=== PATIENT | male | born 1950 | race Caucasian/White ===

== ENCOUNTER 2019-01-01 17:26 | Inpatient (IN) | payer OTHER ==
[~2019-01-01] VITALS: Ht 175.2 cm; Wt 109.8 kg
--- NOTE | ~2019-01-01 | PR ---
[place], [place] PROGRESS NOTE NAME: CANDI MORATAYA UNIT #: [id number] ROOM: 316 DOCTOR: KATHERIN WILKINSON MD BIRTHDATE: [birth year] DOS: 01/03/2019 CHIEF COMPLAINT: "I'm feeling better. I just hope I get to go home soon. I miss my and I miss my dog." SUMMARY OF THE VISIT: The patient was interviewed as he was finishing his breakfast. He had most of it eaten. He stopped though and engaged readily in conversation, reporting that his sleep and appetite have both improved and that he is beginning to feel better. He did request that he followup in my office and wants to be able to see a counselor for his anger and grief issues. He convincingly denies medication side effects. MENTAL STATUS: He is alert and oriented. Mood does seem to be starting to trend towards euthymia. Affect is much more appropriate. There is no rakesh or hypomania. There is no gross psychosis. Short term memory, intermediate memory and long-term memory are intact. PLAN: I will consult Dr. Maral Dumont for counseling services. Continue his current psychotropic regimen, continue to engage in individual and najera milieu activity, returning to the least restrictive environment when psychiatrically stable. KATHERIN WILKINSON MD CM:PNTRANS [id number] KATHERIN WILKINSON MD 01/03/19 1520 interface
--- NOTE | ~2019-01-01 | EKG ---
[place], [place] ELECTROCARDIOGRAM REPORT NAME: CANDI MORATAYA UNIT #: [id number] ROOM: [facility] DOCTOR: NIRMALA DRAFT REPORT BIRTHDATE: [birth year] [facility] Test Date: 2019-01-01 Test Time: 21:02:02 Pat Name: CANDI MORATAYA Department: Room: Gender: Compensation/Benefits Specialist: : 1950 Requested By: EDEN KIM Order Number: [id number] Reading MD: Ariana Mustafa Measurements Intervals Point Rate: 81 P: 35 OH: 223 QRS: -23 QRSD: 115 T: 35 QT: 395 QTc: 459 Interpretive Statements Sinus rhythm Prolonged OH interval Incomplete right bundle branch block Electronically Signed On 01-03-2019 9:35:38 PST by Ariana Mustafa CM:EKGRPT:ELECTROCARDIOGRAM REPORT 01 0935 EDEN KIM EPIPHANY DRAFT REPORT EDEN KIM
--- NOTE | ~2019-01-01 | DS ---
[place], [place] DISCHARGE SUMMARY NAME: CANDI MORATAYA UNIT #: [id number] ROOM: 316 DOCTOR: KATHERIN WILKINSON MD BIRTHDATE: [birth year] DOS: 01/04/2019 CHIEF COMPLAINT: "I am just so stressed out, I can't go on like this." HISTORY OF PRESENT ILLNESS: This is a 68-year-old white male who was sent in to the Emergency Room at [facility] by his primary care physician, Dr. Joshi. The patient had presented to Dr. Joshi's office with a chief complaint of increased depression, increased anxiety, inability to cope with fleeting suicidal thoughts. The patient reports increased stressors that have been wearing him down to the point where he is not sleeping well, eating well. He has not been attending to his ADLs. He can no longer cope and states he has thoughts of ending his life or at least hoping he would go to bed and not wake up. The patient reports that he has not felt this bad in a long time and that this is new to him and he wants to get help. He was admitted now to rule out organic factors and to stabilize on medication. SUMMARY OF HOSPITAL COURSE: The patient was admitted to the unit where he was started on Remeron 15 mg at bedtime to combat depression, to aid sleep and improve appetite. Additionally, he was given a non-addictive antianxiety medicine Vistaril 25 mg 3 times daily to help relieve some of the anxiety and allow him to cope more appropriately. Routine screening examinations revealed a vitamin D level that was low at 22.2, so vitamin D 5000 International Units daily was added. Over the course of the next several days, the patient tolerated the medication well and reported improvement in sleep and appetite and ADL maintenance. Over this course, he was counseled on ways to more effectively cope with life stressors and felt that he had improved enough to be able to return home. I did talk with my staff in my office and we did arrange for him to be discharged then on , 01/04/2019 with an appointment already on 01/05/2019. MENTAL STATUS AT DISCHARGE: The patient is alert and oriented to person, place, and time. Mood is overwhelmingly depressed at the time of admission, but had improved sufficiently at the time of discharge. He was definitely trending towards euthymia and was much brighter and the neurovegetative symptoms had dissipated. There is no hypomania or rakesh. There is no gross psychosis. Short, intermediate, and long-term memory was intact. FINAL DIAGNOSES UPON DISCHARGE: Major depression, recurrent, severe. DISPOSITION: All of his prescriptions were e-scribed to [facility] in [place] At the time of discharge, he was medically and psychiatrically stable. [place], [place] DISCHARGE SUMMARY NAME: CANDI MORATAYA UNIT #: [id number] ROOM: [facility] DOCTOR: KATHERIN WILKINSON MD BIRTHDATE: [birth year] KATHERIN WILKINSON MD CM:DISCHARG [id number] KATHERIN WILKINSON MD 01/04/19 1040 interface
--- NOTE | ~2019-01-01 | WRIGHTHP ---
[place], [place] PATIENT HISTORY AND PHYSICAL EXAM NAME: CANDI MORATAYA UNIT #: [id number] ROOM: 316 DOCTOR: KATHERIN WILKINSON MD BIRTHDATE: [birth year] DOS: 01/02/2019 CHIEF COMPLAINT: "I am just so stressed out, I can't go on like this." HISTORY OF PRESENT ILLNESS: This is a 68-year-old white male who was sent to the Emergency Room of [facility] by his primary care physician, Dr. Joshi. The patient had presented to Dr. Joshi with a chief complaint of increased depression, increased anxiety, inability to cope with fleeting suicidal thoughts. The patient reports that he has been stressed out for a long time and that this has been gradually wearing him down to the point where he is not sleeping well, eating well. He is not attending to his ADLs. He no longer can cope and has had some thoughts of ending his life or at least hoping that he would go to bed and not wake up. The patient reports that he has not felt this bad for a long time and that this is very new to him and he is overwhelmed by life stressors. He is admitted now to rule out organic factors, to stabilize on medication, to engage in individual and najera milieu activity with the ultimate plan to return to the least restrictive environment when psychiatrically stable. PAST MEDICAL HISTORY: Remarkable for asthma, atrial fibrillation, congestive heart failure, hypertension, GERD, diabetes, obstructive sleep apnea. SOCIAL HISTORY: The patient is a former cigarette smoker, but does not smoke now. He does drink alcohol socially. He does not use illicit drugs. ALLERGIES: He lists no known allergies. STRENGTHS: Ambulatory, good verbal skills. WEAKNESSES: High stress level, poor coping skills. MENTAL STATUS: The patient is alert and oriented to person, place, and time. Mood is overwhelmingly depressed with anxious overtones. He endorses multiple neurovegetative symptoms as well as fleeting suicidal thoughts. There is no hypomania or rakesh. There are no gross psychotic symptoms. Short term, intermediate, and long-term memory are intact. DIAGNOSIS: Major depression, recurrent, severe. PLAN: I have already started him on Remeron 15 mg at bedtime. I will go ahead and add Vistaril 25 mg 3 times a day as a non-addicting antianxiety agent given his stress level. Routine screening examinations reveal him to have a low vitamin D level of 22.2. I will treat with vitamin D 5000 international units daily. We will engage in individual and najera milieu activity with the ultimate plan to return to the least restrictive environment when psychiatrically stable. [place], [place] PATIENT HISTORY AND PHYSICAL EXAM NAME: CANDI MORATAYA UNIT #: [id number] ROOM: [facility] DOCTOR: KATHERIN WILKINSON MD BIRTHDATE: [birth year] KATHERIN WILKINSON MD CM:HISPHYS:PATIENT HISTORY AND PHYSICAL EXAMINATION [id number] KATHERIN WILKINSON MD 01/02/19 1053 interface
[2019-01-01 17:29] VITALS: BP 130/93
--- NOTE | 2019-01-01 20:24 | NUR ---
PT REMAINS W/O ACUTE DISTRESS NOTED AWAITING EVAL,SAFETY PRECAUTIONS INTACT AND CALL LIGHT WITHIN REACH.
--- NOTE | 2019-01-01 21:02 | NUR ---
PT AWARE THAT REQUIRE A URINE SAMPLE FOR ANALYSIS.
[2019-01-01 21:14] LABS: BASO % 0.4 % (0.0-1.0); EOS # 0.2 10*3/uL (0.0-0.4); EOS % 2.2 % (1.0-4.0); HEMOGLOBIN 14.3 g/dl (14.0-18.0); LYMPH % 29.2 % (27.0-41.0); MEAN CELL VOLUME 98.4 fl (80.0-94.0); MEAN CORPUSCULAR HGB CONC 32.5 g/dl (33.0-37.0); MEAN PLATELET VOLUME 9.1 fl (9.6-12.3); MONO % 9.5 % (3.0-9.0); NEUT % 58.2 % (47.0-73.0); PLATELET COUNT AUTOMATED 305 10*3/uL (130-400); RED BLOOD COUNT 4.47 10*6/uL (4.50-5.90); RED CELL DISTRI WIDTH 12.7 % (0-14.5); WHITE BLOOD COUNT 10.4 10*3/uL (4.8-10.8)
[2019-01-01 21:23] LABS: BILIRUBIN NEGATIVE (NEGATIVE); BLOOD NEGATIVE (NEGATIVE); CLARITY CLEAR (CLEAR); COLOR YELLOW (YELLOW); GLUCOSE NEGATIVE (NEGATIVE); KETONE NEGATIVE (NEGATIVE); LEUKO ESTERASE NEGATIVE (NEGATIVE); NITRITE NEGATIVE (NEGATIVE); PH 5.5 (5.0-9.0); SPECIFIC GRAVITY 1.025 (1.005-1.030); UROBILINOGEN 0.2 E.U./dl (0.2-1.0)
[2019-01-01 21:30] LABS: ALBUMIN 3.7 gm/dl (3.1-4.5); ALKALINE PHOSPHATASE 61 U/L (45-117); BUN 16 mg/dl (7-24); CHLORIDE 104 mmol/L (98-107); CREATININE 1.19 mg/dL (0.70-1.30); POTASSIUM 3.8 mmol/L (3.5-5.1); SGOT/AST 22 IU/L (3-35); SGPT/ALT 52 U/L (12-78); SODIUM 139 mmol/L (136-145); TOTAL PROTEIN 7.5 gm/dL (6.4-8.2)
[2019-01-01 21:33] LABS: EPITHELIAL CELLS 0-2; HYALINE CAST 0-2
[2019-01-01 21:33] LABS: ETHYL ALCOHOL < 3.0 mg/dl (<3)
[2019-01-01 21:34] LABS: URINE AMPHETAMINES < 1000 (1000ng/ml); URINE BARBITURATES < 200 (200ng/ml); URINE BENZODIAZEPINES < 200 (200ng/ml); URINE CANNABINOIDS (THC) < 50 (50ng/ml); URINE COCAINE < 300 (300ng/ml); URINE METHADONE < 300 (300ng/ml); URINE OPIATES < 300 (300ng/ml); URINE PHENCYCLIDINE < 25 (25ng/ml)
--- NOTE | 2019-01-02 | NUR ---
CANDI MORATAYA a 68 year old M admitted via wheel chair from the EMERGENCY ROOM as a voluntary admission. Arrived on unit at 0000AM. ALLERGIES: NONE. Vital signs are: 97.5-85-17 114/67. The client signed the following forms with stated understanding: Authorization For The Release of Medical Information, Clothing List, Consent to Voluntary Admission and Hospitalization, Consent and Release Forms/Receipt of Rights, Acknowledgement of Advance Directive Information, Behavioral Health Consent Form, and Informed Consent of Medications. [facility] A search was conducted and hazardous articles were removed. Client was oriented to the unit. STANLEY KNUTSON
[2019-01-02] MEDS ORDERED: GLUCOPHAGE500 M1 PO (00:32)
[2019-01-02] MEDS ORDERED: LISINOPRIL5 MG PO (00:32)
[2019-01-02] MEDS ORDERED: AMIODARONE HYD200 MG PO (00:33)
[2019-01-02] MEDS ORDERED: ISOSORBIDE30 MG PO (00:35)
[2019-01-02] MEDS ORDERED: LASIX40 MG PO (00:35)
[2019-01-02] MEDS ORDERED: CARVEDILOL12.5 MG PO (00:36)
[2019-01-02] MEDS ORDERED: NEXIUM 24HR20 M2 PO (00:36)
[2019-01-02] MEDS ORDERED: ASPIRIN ADULT L81 M1 PO (00:37)
[2019-01-02] MEDS ORDERED: BREO ELLIPTA 21 EACH PO (00:38)
[2019-01-02] MEDS ORDERED: VENT7GM INH (00:39)
[2019-01-02] MEDS ORDERED: BREO ELLIPTA 11 EACH PO (00:40)
--- NOTE | 2019-01-02 00:45 | NUR ---
DR ERAZO NOTIFIED OF ADMISSION
[2019-01-02 01:44] VITALS: BP 114/67
[2019-01-02 01:46] VITALS: BP 114/67
--- NOTE | 2019-01-02 02:55 | NUR ---
CLIENT RESTING QUIET AT THIS TIME. DURING HIS ASSESSMENT HE WAS HYPERVERBAL WITH FLIGHT OF IDEAS. PREOCCUPIED WITH HIS FAMILY BLAMEING HIM FOR PROBLEMSAND ANGER
--- NOTE | 2019-01-02 06:00 | NUR ---
DR ERAZO HERE TO SEE CLIENT. SLEPT WELL PAST 0230AM
[2019-01-02 07:54] LABS: THYROID STIM HORMONE (HS) 1.79 uIU/ml (0.358-4.75)
[2019-01-02 08:11] VITALS: BP 147/76
--- NOTE | 2019-01-02 08:30 | NUR ---
Treatment Plan meeting with Dr. Dupont, RN, AT, SW and Lbd Teacher. Plan for discharge next week Tuesday/Tuesday. Pt. will return home at discharge.
[2019-01-02] MEDS ORDERED: DIGITEK250 MCG PO (08:52)
--- NOTE | 2019-01-02 11:46 | NUR ---
AM GROUP PT ATTENDED MORNING GROUP THERAPY AND PARTICIPATED BY DOING A WORDSEARCH, PT HAS NOT BEEN ASSESSED BY THIS VERIFIER OPERATOR YET. GOALS TO BE SET.
--- NOTE | 2019-01-02 11:54 | NUR ---
SPOKE WITH DR. KAPOOR ADVISED THAT DIGOXIN WAS ADDED TO HOME MEDS BC CALLED IN AND ADVISEWD THAT SHE FORGOT TO TELLUS ABOUT THE MED AND ALSO ADVISED THAT PER PT HE CHECKS HIS BLOOD SUGAR 2X/DAY AT HOME.
--- NOTE | 2019-01-02 11:57 | NUR ---
DR. PADRON ON UNIT TO ASSESS PT, UPDATE PROVIDED. PER DR. PADRON CONTINUE DIGOXIN.
--- NOTE | 2019-01-02 15:59 | NUR ---
PM GROUP PT ATTENDED AFTERNOON GROUP THERAPY AND PARTICIPATED BY DOING A WORDSEARCH. PT WAS QUIET AND ON TASK.
[2019-01-02 20:00] VITALS: BP 142/76
--- NOTE | 2019-01-02 20:36 | NUR ---
EVENING/BINGO/STORY PT ATTENDED AND PARTICIPATED IN GROUP. PT PLEASANT AND ON TASK WITH NO AGITATION OR KIRSTIE EXPRESSED. PT WILL CONTINUE TO ATTEND AND PARTICIPATE IN GROUP TO BEST OF ABILITY.
[2019-01-02] MEDS ORDERED: NEXIUM20 M1 PO (22:10)
--- NOTE | 2019-01-02 22:15 | NUR ---
P--HOPLESS/HELPLESS--WORRISOM I--REVIEWED ALL MEDICATIONS. REASSURED THAT AL CARDIAC MEDICATIONS GIVEN. INFORMED THAT NEXIUM WILL BE BROUGHT UP TO DOCTORS. COPIES OF MAR AND WIFES LIST COMPARIED. EMOTIONAL SUPPORT PROVIDED R-- OK I JUST DIDN'T RECOGNIZE THE NAMES AND IT SEEMS LIKE I TAKE A WHOLE LOT MORE AT HOME P--CONTINUE TO REVIEW MEDICATION AND PROVIDE EMOTIONAL SUPPORT
--- NOTE | 2019-01-02 22:50 | NUR ---
Placed patient on bipap for the evening. Patient compliant and states no complaints. Resting comfortably.
--- NOTE | 2019-01-02 23:44 | NUR ---
24 HR chart check completed.
[2019-01-03 07:53] VITALS: BP 123/69
--- NOTE | 2019-01-03 07:58 | NUR ---
DR. PADRON ON UNIT TO ASSESS PT, UPDATE PROVIDED.
--- NOTE | 2019-01-03 08:30 | NUR ---
Treatment Plan meeting with Dr. Dupont, RN, AT, SW and Usability Architect. Plan for discharge Tuesday. Pt. will return home at discharge.
--- NOTE | 2019-01-03 09:06 | NUR ---
SPOKE WITH DR. KAPOOR AT [phone] RE: PT BREOILLEPTA BEING PLACED ON HOLD AND PT C/O BEING SHORT OF BREATH AND NOT GETTING HIS DAILY MEDICATION. PER HE WILL TAKE CARE OF IT. ALSO SPOKE [facility] AND ADVISED THAT PT IS REQUESTING A BREATHING TX
--- NOTE | 2019-01-03 11:07 | NUR ---
P: PT MOOD IS DEPRESSED. PT ANXIOUS AND PREOCCUPIED WITH MEDS AT TIMES. I:PROVIDE EMOTIONAL SUPPORT AND 1:1 FOR PT TO VOICE FEELINGS, ENCOURAGE MED COMPLIANCE AND PROVIDE MED EDUCAITON R: PT ALERT TO PERSON, PLACE AND TIME. PT MED COMPLIANT WITHOUT DIFFICULTY. NO HALLUCINATIONS OR DELUSIONS NOTED. PT DENIES ANY SUICIDAL THOUGHTS. PT AMBULATORY THROUGHOUT UNIT WITH WHEELED WALKER, PT OCCASIONALLY UNSTEADY. PT CONTINENT OF BOWEL AND BLADDER. PT SHOWERED THIS SHIFT. P: PROVIDE EMOTIONAL SUPPORT AND 1:1 FOR PT TO VOICE FEELINGS, ENCOURAGE MED COMPLIANCE AND PROVIDE MED EDUCATION, MONITOR PT BEHAVIORS ON Q15 MIN SAFETY CHECKS
--- NOTE | 2019-01-03 11:20 | NUR ---
Occupational Therapy referral received and screen completed. Patient observed independently on 3N unit with wheeled walker. Staff reports patient is independent in all self care including shower this am. Patient normally uses a cane at home but is not permitted a cane on 3N unit. Recommend no further OT at this time. Discharge OT referral. Liberty Mccain OTR/l
--- NOTE | 2019-01-03 11:57 | NUR ---
AM GROUP/MUSIC AND LIGHT THERAPY PT WAS PRESENT FOR MORNING GROUP THERAPY BUT WAS TALKING WITH RADIOSONDE OPERATOR THE ENTIRE TIME.
--- NOTE | 2019-01-03 15:20 | NUR ---
PER ROSMERY AT [facility] CLAIMS PT CAN NOT BE AUTHORIZED AT THIS TIME. PEER TO PEER CAN BE DONE WITH DOCTOR FROM [facility]. SOMEONE WILL CALL ME TO SET UP PEER TO PEER WITH DR WILKINSON. CALLED [facility]A ON [facility] TO SEE WHAT WOULD BE A GOOD TIME TO SET UP PEER TO PEER WITH DR WILKINSON. SHE STATES TO CALL MIGUEL A ACCOUNT MANAGER TRAINEE. MESSAGE LEFT ON MIGUEL A'S ANSWERING MACHINE TO CALL ME BACK. ALSO CALLED [facility] BUT NO ANSWER, LEFT MESSAGE FOR HER TO CALL BACK.
--- NOTE | 2019-01-03 15:30 | NUR ---
Received Call from Melina HUGGINSground helper street railway that PtNaresh Kilgore is not Authorized and will require Peer to Peer. Melina will notify Dr. Dupont. Advised that Dr. Dupont will be in around 8:00 a.m. and that time could be set up around 8:30 for phone call from Insurance. Spoke with Pt. briefly in the Dining Area. Notified him that Insurance may require discharge earlier than Tuesday and Pt. states "That would be better" "Feeling a little overwhelmed here due to the Noise". Reassurance provided and Advised Pt. that Follow up appointments will be scheduled with his Primary Care Physician and Mental Health Follow Up arranged.
--- NOTE | 2019-01-03 15:43 | NUR ---
PM GROUP PT ATTENDED AFTERNOON GROUP THERAPY AND PARTICIPATED BY WORKING A WORDSEARCH PUZZLE. PT WAS QUIET AND ON TASK. PT EXHIBITED NO AGITATION WHILE IN GROUP
--- NOTE | 2019-01-03 16:36 | NUR ---
Shift chart check completed.
[2019-01-03 20:00] VITALS: BP 122/69
--- NOTE | 2019-01-03 21:36 | NUR ---
Patient alert and oriented x3. Patient interacting with staff and other patients during snacktime. Patient denies hallucinations. No signs of any responding to internal stimuli noted. Patient compliant with medications without any difficulty. Provided 1:1 for emotional support. Patient also ambulating in hallway with steady gait. Plan to continue to encourage medication compliance and continue to provide emotional support. Also continue to encourage patient to be more interactive with staff and in groups. Q 15 minute safety checks continued and maintained. See [facility] flowsheet for further documentation.
--- NOTE | 2019-01-03 22:15 | NUR ---
Pt placed on BiPap 12/6 and an FiO2 of 30%. Alarms on and audible.
--- NOTE | 2019-01-04 02:57 | NUR ---
24 HR chart check completed.
--- NOTE | 2019-01-04 05:08 | NUR ---
Patient slept approx. 6 hours throughout shift. Q 15 minute safety checks continued and maintained.
[2019-01-04 08:00] VITALS: BP 120/68
--- NOTE | 2019-01-04 09:05 | NUR ---
Late Entry: Individual time spent with pt in the AM of 01/03/19. Time spent with pt was approximatley 1 hour. Pt spoke of his life stressors, which pt had shared with this signwriter previously. Pt spoke of his visit with his the previous evening and the topics that were discussed. As patient shared, this signwriter assisted pt in processing pt's thoughts. Pt did verbalize that he realizes that he cannot change his nor her family. However, pt recognizes that he has the ability to change himself. Pt also shared that he finds his greatest support in his [id number] Dylan who has similar life stressors. Explored ideas with pt on how he might change his views of his 's family and how he can express his thoughts to his without becoming angry. Discussed this signwriter, pt, and pt's Josephine meeting. Pt was in agreement with this. After meeting with pt, this signwriter left a voicemail for pt's Josephine requesting a return call to schedule a family meeting.
[2019-01-04] MEDS ORDERED: MIRTAZAPINE15 M2 PO (09:56)
[2019-01-04] MEDS ORDERED: HYDROXYZINE PAM25 M1 PO (09:56)
--- NOTE | 2019-01-04 10:56 | NUR ---
PHYSICAL THERAPY Physical therapy screen completed. Pt is independent with ambulation and ADLs using his FWW. Pending discharge today. Thank you Porsha Godwin, PT, DPT
[2019-01-04] MEDS ORDERED: VITAMIN D5000 UNI1 PO (11:35)
--- NOTE | 2019-01-04 11:42 | NUR ---
AM GROUP PT WAS PRESENT FOR MORNING GROUP THERAPY AND PARTICIPATED BY DOING A WORDSEARCH AND TALKING WITH A FIRER KILN. PT IS EXCITED TO BE DISCHARGED FROM THE UNIT TODAY
--- NOTE | 2019-01-04 12:51 | NUR ---
PT DISCHARGED OFF UNIT AT THIS TIME VIA W/C, PT'S AND MENTAL HEALTH WORKER ESCORTED PT OFF UNIT. DISCHARGE PAPERWORK REVIEWED WITH PT AND , ALL PAPERWORK AND BELONGINGS SENT WITH PT.
--- NOTE | 2019-01-04 13:21 | NUR ---
Patient discharged today to home with his . Follow-up was scheduled at [facility] with Tasneem Erazo PA-C for psychiatry and Dr Dumont for counseling. While at [facility], pt was motivated for treatment. He participated in programming. Pt stated that his mood was improving and that he was feeling hopeful for his future.
== END 2019-01-04 12:51 | disposition home or self-care (01) | DRG 885 ==
LOC: ED 17:26 → 3N 01-02 00:13
PROVIDERS: Nurse Practitioner; ADMIT Psychiatry & Neurology Psychiatry
DX: F33.2 Major depressive disorder, recurrent severe without psychotic features (principal); I50.9 Heart failure, unspecified; J45.909 Unspecified asthma, uncomplicated; E11.65 Type 2 diabetes mellitus with hyperglycemia; F41.9 Anxiety disorder, unspecified; I48.91 Unspecified atrial fibrillation; I11.0 Hypertensive heart disease with heart failure; K21.9 Gastro-esophageal reflux disease without esophagitis; G47.33 Obstructive sleep apnea (adult) (pediatric); E66.9 Obesity, unspecified; D75.89 Other specified diseases of blood and blood-forming organs; I48.0 Paroxysmal atrial fibrillation; E55.9 Vitamin D deficiency, unspecified; Z90.49 Acquired absence of other specified parts of digestive tract; Z98.52 Vasectomy status; Z87.891 Personal history of nicotine dependence; Z95.5 Presence of coronary angioplasty implant and graft; Z80.42 Family history of malignant neoplasm of prostate; Z79.84 Long term (current) use of oral hypoglycemic drugs; Z79.82 Long term (current) use of aspirin; Z79.899 Other long term (current) drug therapy; Z68.35 Body mass index [BMI] 35.0-35.9, adult

== ENCOUNTER → 2023-04-21 | Outpatient (CLI) | payer OTHER ==
[~2023-04-21] MED LIST: AMIODARONE HYD200 MG PO; ASPIRIN ADULT L81 M1 PO; BREO ELLIPTA 11 EACH PO; BREO ELLIPTA 21 EACH PO; CARVEDILOL12.5 MG PO; DIGITEK250 MCG PO; GLUCOPHAGE500 M1 PO; HYDROXYZINE PAM25 M1 PO; ISOSORBIDE30 MG PO; LASIX40 MG PO; LISINOPRIL5 MG PO; MIRTAZAPINE15 M2 PO; NEXIUM 24HR20 M2 PO; NEXIUM20 M1 PO; VENT7GM INH; VITAMIN D5000 UNI1 PO
== END | disposition home or self-care (01) ==
LOC: RESCLI 15:34
PROVIDERS: ATTEND Internal Medicine
DX: I48.91 Unspecified atrial fibrillation (principal); I25.10 Atherosclerotic heart disease of native coronary artery without angina pectoris; E78.2 Mixed hyperlipidemia; I50.9 Heart failure, unspecified; I11.0 Hypertensive heart disease with heart failure; Z98.890 Other specified postprocedural states; Z87.891 Personal history of nicotine dependence; F10.90 Alcohol use, unspecified, uncomplicated; Z79.899 Other long term (current) drug therapy